=== PATIENT | male | born 1940 | race Caucasian/White ===

== ENCOUNTER 2020-03-25 05:31 | Emergency (ER) | payer MEDICARE, OTHER ==
[~2020-03-25] VITALS: Ht 190.5 cm; Wt 93.2 kg
[2020-03-25 05:39] VITALS: BP 158/93
[2020-03-25] MEDS ORDERED: ACETAMINOPHEN 325 MG TABLET PO ONE (06:00)
[2020-03-25] MEDS ORDERED: IBUPROFEN 600 MG TABLET PO ONE (06:00)
--- NOTE | 2020-03-25 06:00 | NUR ---
ERP TO BEDSIDE.
[2020-03-25] MEDS ORDERED: IBUPROFEN 600 MG TABLET ONE (06:08)
[2020-03-25] MEDS ORDERED: ACETAMINOPHEN 325 MG TABLET ONE (06:08)
--- NOTE | 2020-03-25 06:13 | NUR ---
THIS PT WAS A VISITOR FOR ANOTHER PT IN THE ER [facility] THIS AM. THIS RN ASSISTED PT TO FIND ROOM WHEN HE WAS HERE A VISITOR. "I FELL BEFORE YOU HELPED ME FIND HIS ROOM." WHEN ASKED IF HE DOES ANY DRUGS INCLUDING MARIJUANA, "OH NO, I'M IN AVIATION, I STAY AWAY FROM THAT." PT TOLD ERP THAT "THE 5G IN THE AIR IS AFFECTING HIM AT HIS PLACE OF RESIDENCE." PT SITTING IN BED, TEXTING ON PHONE. NO ACUTE DISTRESS NOTED.
--- NOTE | 2020-03-25 06:32 | NUR ---
PT DENIES HITTING HEAD, LOC, HEAD OR NECK PAIN.
--- NOTE | 2020-03-25 07:57 | NUR ---
Patient given discharge instructions and they have confirmed that they understand the instructions. Patient ambulatory with steady gait.
== END 2020-03-25 07:58 | disposition home or self-care (01) ==
LOC: ED 07:07
DX: S43.402A Unspecified sprain of left shoulder joint, initial encounter (principal); S83.92XA Sprain of unspecified site of left knee, initial encounter; S80.02XA Contusion of left knee, initial encounter; S40.012A Contusion of left shoulder, initial encounter; S70.02XA Contusion of left hip, initial encounter; Z90.89 Acquired absence of other organs; Z88.1 Allergy status to other antibiotic agents; W18.30XA Fall on same level, unspecified, initial encounter; Y93.89 Activity, other specified; Y92.410 Unspecified street and highway as the place of occurrence of the external cause; Y99.8 Other external cause status
CPT/HCPCS: 99284

== ENCOUNTER 2020-05-13 23:02 | Emergency (ER) | payer MEDICARE ==
[~2020-05-13] VITALS: Ht 190.5 cm; Wt 88.8 kg
[2020-05-13 23:08] VITALS: BP 143/93
--- NOTE | 2020-05-14 01:23 | NUR ---
NIL X 1
== END 2020-05-14 01:38 | disposition left against medical advice (07) ==
LOC: ED 05-14 01:00
DX: R51.9 Headache, unspecified (principal); R00.0 Tachycardia, unspecified
CPT/HCPCS: 99281

== ENCOUNTER 2020-06-21 01:19 | Emergency (ER) | payer MEDICARE ==
[~2020-06-21] VITALS: Ht 190.5 cm; Wt 87.0 kg
[2020-06-21 01:28] VITALS: BP 153/76
[2020-06-21] MEDS ORDERED: ACETAMINOPHEN 500 MG TABLET ONE (01:53)
[2020-06-21] MEDS ORDERED: ACETAMINOPHEN 500 MG TABLET PO ONE (02:00)
[2020-06-21] MEDS ORDERED: NEOSPORIN OINT. PKT 1 PACKET ONE (02:45)
== END 2020-06-21 04:10 | disposition home or self-care (01) ==
LOC: ED 02:30
DX: G89.11 Acute pain due to trauma (principal); M25.512 Pain in left shoulder; M25.561 Pain in right knee; M85.89 Other specified disorders of bone density and structure, multiple sites; F17.210 Nicotine dependence, cigarettes, uncomplicated; Z90.89 Acquired absence of other organs; W01.0XXA Fall on same level from slipping, tripping and stumbling without subsequent striking against object, initial encounter; Y93.89 Activity, other specified; Y92.488 Other paved roadways as the place of occurrence of the external cause; Y99.8 Other external cause status
CPT/HCPCS: 99283; 99406